=== PATIENT | male | born 1950 | race Caucasian/White ===

== ENCOUNTER → 2017-11-19 | Outpatient (CLI) | payer OTHER, BC | LOC: FIMAGING 10:05 | PROVIDERS: ATTEND Family Medicine | DX: I80.01 Phlebitis and thrombophlebitis of superficial vessels of right lower extremity (principal) ==

== ENCOUNTER → 2017-11-25 | Outpatient (CLI) | payer OTHER, BC | LOC: FIMAGING 09:38 | PROVIDERS: ATTEND Internal Medicine | DX: K74.69 Other cirrhosis of liver (principal); D73.2 Chronic congestive splenomegaly; N28.1 Cyst of kidney, acquired ==

== ENCOUNTER → 2018-06-02 | Outpatient (CLI) | payer OTHER, BC | LOC: FIMAGING 09:01 | PROVIDERS: ATTEND Internal Medicine | DX: N28.9 Disorder of kidney and ureter, unspecified (principal); M79.606 Pain in leg, unspecified; R60.0 Localized edema; K74.60 Unspecified cirrhosis of liver; I82.431 Acute embolism and thrombosis of right popliteal vein ==

== ENCOUNTER → 2018-08-25 | Outpatient (CLI) | payer OTHER, BC | LOC: FIMAGING 14:27 | PROVIDERS: ATTEND Family Medicine | DX: Z86.718 Personal history of other venous thrombosis and embolism (principal) ==

== ENCOUNTER 2018-10-14 10:21 | Inpatient (IN) | payer OTHER, BC | END 2018-10-16 15:00 | disposition home or self-care (01) | LOC: F1N 15:41 ==